=== PATIENT | female | born 1970 | race Caucasian/White ===

== ENCOUNTER → 2020-04-24 | Outpatient (CLI) | payer BC, OTHER | LOC: US 12:40 | DX: R92.2 Inconclusive mammogram (principal) | CPT/HCPCS: 76641-LT; 76641-RT ==

== ENCOUNTER → 2021-04-23 | Outpatient (CLI) | payer BC | LOC: MAMO 03-17 14:30 | DX: R92.2 Inconclusive mammogram (principal) | CPT/HCPCS: 77063; 77067 ==

== ENCOUNTER → 2021-05-27 | Outpatient (CLI) | payer BC | LOC: LAB 08:36 | DX: G50.0 Trigeminal neuralgia (principal) | CPT/HCPCS: 36415; 82565 ==

== ENCOUNTER → 2021-05-27 | Outpatient (CLI) | payer BC | LOC: EMI 10:15 | DX: G50.0 Trigeminal neuralgia (principal); G44.029 Chronic cluster headache, not intractable; J32.9 Chronic sinusitis, unspecified | CPT/HCPCS: 70553; A9577 ==

== ENCOUNTER → 2021-10-26 | Outpatient (CLI) | payer BC | LOC: EMI 10-15 13:00 | DX: M48.061 Spinal stenosis, lumbar region without neurogenic claudication (principal); M51.36 Other intervertebral disc degeneration, lumbar region; M51.37 Other intervertebral disc degeneration, lumbosacral region; M48.07 Spinal stenosis, lumbosacral region; M47.816 Spondylosis without myelopathy or radiculopathy, lumbar region; M47.817 Spondylosis without myelopathy or radiculopathy, lumbosacral region | CPT/HCPCS: 72148 ==